=== PATIENT | male | born 1975 | race Caucasian/White ===

== ENCOUNTER 2017-04-28 16:52 | Emergency (ER) | payer OTHER ==
[~2017-04-28] VITALS: Ht 167.6 cm; Wt 82.3 kg
[~2017-04-28 16:52] MED LIST: PROP10TA7 PO
[2017-04-28 17:14] VITALS: TEMP 36.5; Ht 167.6 cm; Wt 82.3 kg
--- NOTE | 2017-04-28 18:03 | DIAGNOSTIC IMAGING REPORT ---
CT FACIAL BONES-MXILLOFAC WITHOUT CT DOSE: 869.86 mGy.cm CLINICAL HISTORY: Facial pain status post trauma COMPARISON STUDY: No previous studies for comparison. TECHNIQUE: Helical images were acquired in the transverse plane. The study was reviewed and analyzed on the independent 3-D workstation. A dose lowering technique was utilized adhering to the principles of ALARA. The pterygoid plates appear intact. The zygomatic arches appear intact. The globes appear intact. There is no evidence of orbital emphysema. The orbital mcclain and floor appear intact. The mandibular condyles appear intact. IMPRESSION: No facial fractures identified. Electronically signed by: Curt Duncan M.D. 04/28/2017 6:01 PM Dictated Date/Time: 04/28/2017 5:59 PM
--- NOTE | 2017-04-28 18:04 | DIAGNOSTIC IMAGING REPORT ---
HEAD CT NONCONTRAST CT DOSE: HISTORY: Closed head injury. Fall. TECHNIQUE: Multiaxial CT images of the head were performed without the use of intravenous contrast. Automated exposure control was utilized for this study. A dose lowering technique was utilized adhering to the principles of ALARA. Comparison: None. Findings: The paranasal sinuses and mastoid air cells are clear. The calvarium and skull base are intact. The ventricles and sulci are within normal limits. There is no mass, hematoma, midline shift, or acute infarct. Impression: No acute intracranial abnormality. Electronically signed by: Martin Wang M.D. 04/28/2017 6:03 PM Dictated Date/Time: 04/28/2017 5:58 PM
[2017-04-28] MEDS ORDERED: TRAM-10 PO (18:16)
--- NOTE | 2017-04-28 18:26 | EMERGENCY ROOM VISIT NOTE ---
History First contact with patient: 17:16 Chief Complaint: FALL Stated Complaint: HEAD INJURY, CONCUSSION SX- REFERRED History of Present Illness The patient is a 41 year old male who presents to the Emergency Room with complaints of injuries from a fall. The patient speaks limited [place]er, and has a note written by his , explaining what happened. The patient also presents with documentation from a [facility] clinic, requesting a head CT to rule out intracranial bleed. According to the note, the patient fell down icy steps 4 days ago. There was no witnessed loss of consciousness. The patient complains of persistent left-sided headache. He also complains of mild left shoulder and left rib pain, but with limited [place]er, reports that he is able to move the shoulder without significant pain. He denies any difficulty breathing or worsening rib pain with deep breathing. He denies neck pain, back pain or other injuries except as preceded described. He rates his discomfort a 6 out of 10. Review of Systems Review of systems was limited secondary to language barrier Past Medical/Surgical History Medical Problems: (1) Hernia repair (2) Inguinal hernia Surgical Problems: (1) urethral reconstruction Family History Diabetes mellitus FH: heart disease Kidney disease Kidney stones Social History Smoking Status: Never Smoker Drug Use: none Marital Status: Housing Status: lives with family Occupation Status: employed Current/Historical Medications Scheduled Propranolol (Inderal), 10 MG PO BID Scheduled PRN Tramadol (Ultram), 1-2 TAB PO Q4H PRN for Pain Physical Exam Vital Signs Date Time Temp Pulse Resp B/P (MAP) Pulse Ox O2 Delivery O2 Flow Rate FiO2 04/28/17 17:14 36.5 69 16 131/67 100 Room Air Physical Exam CONSTITUTIONAL: Healthy and well nourished. Patient does not appear in any acute distress. GCS 15. HEENT: Normocephalic, atraumatic. Pupils equal, round and reactive. No epistaxis, subconjunctival hemorrhage, hemotympanum, raccoon's eyes or Aguero sign. NECK: Full active range of motion without discomfort. No tenderness to palpation through the neck or central cervical spine. RESPIRATORY: Clear to auscultation bilaterally with no wheezing, crackles, rhonchi or stridor. CARDIOVASCULAR: Regular rate and rhythm with no murmurs, rubs or gallops. GASTROINTESTINAL: Bowel sounds present in all quadrants. MUSCULOSKELETAL: The patient is exhibiting nearly full active range of motion of the left shoulder without any significant discomfort. He has no focal tenderness over the sternoclavicular joint, clavicle, acromioclavicular joint, biceps/triceps musculature or elbow region. No tenderness to palpation through the posterior or anterior ribs, sternum or thoracolumbar spine. He has minimal tenderness over the left upper lateral ribs. No ecchymosis or subcutaneous emphysema noted. INTEGUMENTARY: No rash or other significant dermatologic conditions noted. NEUROLOGIC: No focal neurologic deficits noted. Medical Decision & Procedures ER Provider Diagnostic Interpretation: HEAD CT NONCONTRAST CT DOSE: HISTORY: Closed head injury. Fall. TECHNIQUE: Multiaxial CT images of the head were performed without the use of intravenous contrast. Automated exposure control was utilized for this study. A dose lowering technique was utilized adhering to the principles of ALARA. Comparison: None. Findings: The paranasal sinuses and mastoid air cells are clear. The calvarium and skull base are intact. The ventricles and sulci are within normal limits. There is no mass, hematoma, midline shift, or acute infarct. Impression: No acute intracranial abnormality. CT FACIAL BONES-MXILLOFAC WITHOUT CT DOSE: 869.86 mGy.cm CLINICAL HISTORY: Facial pain status post trauma COMPARISON STUDY: No previous studies for comparison. TECHNIQUE: Helical images were acquired in the transverse plane. The study was reviewed and analyzed on the independent 3-D workstation. A dose lowering technique was utilized adhering to the principles of ALARA. The pterygoid plates appear intact. The zygomatic arches appear intact. The globes appear intact. There is no evidence of orbital emphysema. The orbital mcclain and floor appear intact. The mandibular condyles appear intact. IMPRESSION: No facial fractures identified. ED Course Patient history and physical exam were performed. Nurse's notes were reviewed. Vital signs were reviewed and were normal. The patient speaks Norwegian. The patient was offered translation services, which was accepted; however, the 2 computers that we use for this interpretation service were not operational. The patient reports that he knows enough [place]er that he explain what he feels. He is complaining mostly of a headache. I also reviewed documentation from his PCPs office, and was referred here for a head CT. The patient also reports left facial pain as well. I elected to CT of the head and facial bones, both of which were normal. The patient already has a concussion instructional handout from his PCPs office. He was provided an additional handout from the emergency department, and encouraged to limit activities until symptoms improve. He may alternate ibuprofen and Tylenol for baseline pain relief. The patient was provided a home pack and prescription for Ultram if needed for worse pain. The patient appeared to voiced understanding of all discharge instructions, and reports that his daughter at home does speak and read [place]er. The patient refused any analgesics while in the emergency department, and rated his pain a 4 out of 10 at the conclusion of my exam. Prior to leaving the emergency department, the patient's did call him. I spoke with her on the phone as well, and she also voiced understanding of recommendations and treatment plan. Medical Decision [place] Drug Monitoring Program Search Results: patient reviewed within database, no issues identified Medication Reconcilliation Current Medication List: was personally reviewed by me Blood Pressure Screening Patient's blood pressure: Normal blood pressure Impression Primary Impression: Concussion Additional Impressions: Contusion of left shoulder or upper extremity Contusion of rib on left side Fall down steps Departure Information Prescriptions Tramadol (Ultram) 50 Mg Tab 1-2 TAB PO Q4H Y for Pain, #20 TAB For Initial Treatment Prov: Clinton Christian PA 04/28/17 Referrals Lauren Roland PA-C (PCP) Patient Instructions My [facility] Problem Qualifiers Primary Impression: Concussion Encounter type: initial encounter Loss of consciousness presence/duration: without LOC Qualified Codes: S06.0X0A - Concussion without loss of consciousness, initial encounter Additional Impressions: Contusion of rib on left side Encounter type: initial encounter Qualified Codes: S20.212A - Contusion of left front wall of thorax, initial encounter Fall down steps Encounter type: initial encounter Qualified Codes: W10.8XXA - Fall (on) ( from) other stairs and steps, initial encounter
[2017-04-28] MEDS ORDERED: TRAMADOL HCL 50 MG HOME PACK PO ONE (18:30)
[2017-04-28 18:38] VITALS: BP 125/91; PULSE 63; O2SAT 99
== END 2017-04-28 18:38 | disposition home or self-care (01) ==
LOC: C.EDB 16:55 → C.EDD 18:38
DX: S06.0X0A Concussion without loss of consciousness, initial encounter (principal); S20.212A Contusion of left front wall of thorax, initial encounter; W00.1XXA Fall from stairs and steps due to ice and snow, initial encounter; Z98.890 Other specified postprocedural states; Z83.3 Family history of diabetes mellitus; Z84.1 Family history of disorders of kidney and ureter